=== PATIENT | male | born 1965 | race Caucasian/White ===

== ENCOUNTER 2019-06-19 05:36 | Emergency (ER) | payer OTHER ==
[2019-06-19] MEDS ORDERED: HYDROCODONE/APAP 7.5/325 MG TAB ONE (06:00)
--- NOTE | 2019-06-19 06:44 | ER ---
Nurse's Notes [facility] Name: Naren Valle Age: 53 yrs Sex: Male : 1965 Arrival Date: 06/19/2019 Time: 05:39 Bed 7 Private MD: Gypsy Moulton Diagnosis: Fracture of forearm-right radius Presentation: 06/19 05:49 Presenting complaint: Patient states: Reports he tripped over something in the bedroom ea and landed on his right forearm. Transition of care: patient was not received from another setting of care. Onset of symptoms. Risk Assessment: Do you want to hurt yourself or someone else? Patient reports no desire to harm self or others. Initial Sepsis Screen: Does the patient meet any 2 criteria? No. Patient's initial sepsis screen is negative. Does the patient have a suspected source of infection? No. Patient's initial sepsis screen is negative. Care prior to arrival: None. 05:49 Method Of Arrival: Ambulatory ea 05:49 Acuity: OLGA 4 ea Triage Assessment: 05:57 General: Appears uncomfortable, Behavior is appropriate for age. Pain: Complains of ea pain in right arm. Neuro: Level of Consciousness is awake, alert, obeys commands, Oriented to person, place, time, situation. Cardiovascular: Patient's skin is warm and dry. Respiratory: Airway is patent Respiratory effort is even, unlabored, Respiratory pattern is regular, symmetrical. Derm: Skin is pink, warm \T\ dry. Musculoskeletal: Range of motion: limited in right wrist. 06:00 Injury Description: right forearm injury. cc3 Historical: - Allergies: 05:56 No Known Allergies; ea - Home Meds: 05:56 amlodipine oral [Active]; Metoprolol Tartrate Oral [Active]; ea - PMHx: 05:56 Hypertension; ea - PSHx: 05:56 Hernia repair; ea - Immunization history:: Adult Immunizations up to date. - Social history:: Smoking status: Patient/guardian denies using tobacco. - Ebola Screening: : No symptoms or risks identified at this time. Screenin:54 Abuse screen: Denies threats or abuse. Nutritional screening: No deficits noted. ea Tuberculosis screening: No symptoms or risk factors identified. Fall Risk None identified. Assessment: 05:57 General: see triage assessment. cc3 06:50 Reassessment: Patient appears in no apparent distress at this time. Patient and/or cc3 family updated on plan of care and expected duration. Pain level reassessed. Patient is alert, oriented x 3, equal unlabored respirations, skin warm/dry/pink. TRACK TEMPLATE MAKER Roberto discharged the patient home with prescription given. No IV cannula in situ. Patient left ER vitally stable and ambulatory with his . No valuables left in the patient's room. Patient states feeling better. Patient states symptoms have improved. Vital Signs: 05:56 BP 148 / 87; Pulse 72; Resp 18; Temp 97.6; Pulse Ox 99% on R/A; Weight 70.31 kg; Height ea 5 ft. 6 in. (167.64 cm); Pain 10/10; 06:30 BP 145 / 83; Pulse 70; Resp 17 S; Pulse Ox 99% on R/A; Pain 4/10; cc3 05:56 Body Mass Index 25.02 (70.31 kg, 167.64 cm) ea ED Course: 05:39 Patient arrived in ED. es 05:40 Gypsy Moulton MD is Private Physician. es 05:52 [facility]C [facility] kb 05:52 Yuniel Pacheco MD is Attending Physician. kb 05:54 Triage completed. ea 05:54 Arm band placed on right wrist. Patient placed in an exam room, on a stretcher, on ea pulse oximetry. 05:55 Patient has correct armband on for positive identification. Bed in low position. Call ea light in reach. Side rails up X2. 06:12 Anamaria Cuellar is Primary Nurse. cc3 06:18 Wrist Right 2 View In Process Unspecified. EDMS 06:40 Orthoglass splint: Sugar tong splint applied on right arm. Sling applied to right arm. mt 06:50 No provider procedures requiring assistance completed. Patient did not have IV access cc3 during this emergency room visit. Administered Medications: 06:05 Drug: [place] (7.5 mg-325 mg) 1 tabs {Note: RASS 0.} Route: PO; cc3 06:50 Follow up: Response: No adverse reaction; Pain is decreased; RASS: Alert and Calm (0) cc3 Outcome: 06:43 Discharge ordered by . kb 06:50 Discharged to home ambulatory, with family. cc3 06:50 Condition: stable 06:50 Discharge instructions given to patient, Instructed on discharge instructions, follow up and referral plans. medication usage, Demonstrated understanding of instructions, follow-up care, medications, Prescriptions given X 1. 06:52 Patient left the ED. cc3 Signatures: Dispatcher [employer] EDGricelda Travis, WIRE COINER-C WIRE COINER-CkVidhi Andrea Moriah mt Antunez, Elena, RN RN Anamaria Jeronimo cc3
--- NOTE | 2019-06-19 06:45 | EDPHYS ---
Physician Documentation [facility] Name: Naren Valle Age: 53 yrs Sex: Male : 1965 Arrival Date: 06/19/2019 Time: 05:39 Bed 7 Private MD: Gypsy Moulton ED Physician Yuniel Pacheco HPI: 06/19 06:21 This 53 yrs old Male presents to ER via Ambulatory with complaints of Arm kb Injury, Possible brake. 06:21 The patient or guardian complains of decreased range of motion, deformity, injury, kb pain, swelling, tenderness. The complaints affect the right wrist. Context: The problem was sustained at home, resulted from a fall, on an outstretched hand, tripped over something in the dark. Onset: The symptoms/episode began/occurred just prior to arrival. Treatment prior to arrival includes: no previous treatment. Modifying factors: The symptoms are alleviated by nothing. the symptoms are aggravated by movement. Associated signs and symptoms: Pertinent positives: decreased range of motion, pain, swelling. Severity of symptoms: At their worst the symptoms were moderate, in the emergency department the symptoms are unchanged. The patient has not experienced similar symptoms in the past. The patient has not recently seen a physician. Historical: - Allergies: 05:56 No Known Allergies; ea - Home Meds: 05:56 amlodipine oral [Active]; Metoprolol Tartrate Oral [Active]; ea - PMHx: 05:56 Hypertension; ea - PSHx: 05:56 Hernia repair; ea - Immunization history:: Adult Immunizations up to date. - Social history:: Smoking status: Patient/guardian denies using tobacco. - Ebola Screening: : No symptoms or risks identified at this time. ROS: 06:20 Constitutional: Negative for fever, chills, and weight loss, ENT: Negative for injury, kb pain, and discharge, Neck: Negative for injury, pain, and swelling, Cardiovascular: Negative for chest pain, palpitations, and edema, Respiratory: Negative for shortness of breath, cough, wheezing, and pleuritic chest pain, Abdomen/GI: Negative for abdominal pain, nausea, vomiting, diarrhea, and constipation, Skin: Negative for injury, rash, and discoloration, Neuro: Negative for headache, weakness, numbness, tingling, and seizure. 06:20 MS/extremity: Positive for injury or acute deformity, decreased range of motion, pain, swelling, tenderness, of the right wrist. Exam: 06:18 Constitutional: This is a well developed, well nourished patient who is awake, alert, kb and in no acute distress. Head/Face: Normocephalic, atraumatic. Neck: Trachea midline, no thyromegaly or masses palpated, and no cervical lymphadenopathy. Supple, full range of motion without nuchal rigidity, or vertebral point tenderness. No Meningismus. Chest/axilla: Normal chest wall appearance and motion. Nontender with no deformity. No lesions are appreciated. Cardiovascular: Regular rate and rhythm with a normal S1 and S2. No gallops, murmurs, or rubs. Normal PMI, no JVD. No pulse deficits. Respiratory: Lungs have equal breath sounds bilaterally, clear to auscultation and percussion. No rales, rhonchi or wheezes noted. No increased work of breathing, no retractions or nasal flaring. Abdomen/GI: Soft, non-tender, with normal bowel sounds. No distension or tympany. No guarding or rebound. No evidence of tenderness throughout. Skin: Warm, dry with normal turgor. Normal color with no rashes, no lesions, and no evidence of cellulitis. Neuro: Awake and alert, GCS 15, oriented to person, place, time, and situation. Cranial nerves II-XII grossly intact. Motor strength 5/5 in all extremities. Sensory grossly intact. Cerebellar exam normal. Normal gait. 06:18 Musculoskeletal/extremity: Extremities: grossly normal except: noted in the right wrist: decreased ROM, pain, swelling, tenderness, ROM: limited active range of motion due to pain, in the right wrist, Circulation is intact in all extremities. Sensation intact. Vital Signs: 05:56 BP 148 / 87; Pulse 72; Resp 18; Temp 97.6; Pulse Ox 99% on R/A; Weight 70.31 kg; Height ea 5 ft. 6 in. (167.64 cm); Pain 10/10; 06:30 BP 145 / 83; Pulse 70; Resp 17 S; Pulse Ox 99% on R/A; Pain 4/10; cc3 05:56 Body Mass Index 25.02 (70.31 kg, 167.64 cm) ea Procedures: 06:41 Splinting: Splint applied to right wrist using Orthoglass splint, applied by tech. kb Examined by me, post splint application: neurovascular intact, 2+ distal pulses palpable, brisk capillary refill noted, Patient tolerated well. MDM: 05:52 Patient medically screened. kb 06:18 Data reviewed: vital signs, nurses notes. Data interpreted: Pulse oximetry: on room air kb is 99 %. Interpretation: normal. 06:42 Counseling: I had a detailed discussion with the patient and/or guardian regarding: the kb historical points, exam findings, and any diagnostic results supporting the discharge/admit diagnosis, radiology results, the need for outpatient follow up, a orthopedic surgeon, to return to the emergency department if symptoms worsen or persist or if there are any questions or concerns that arise at home. ED course: Pt educated on ice and elevation for swelling. Reports he is flying to [place] tomorrow. Recommended that he stay and be seen by ortho first. Educated on compartment syndrome and reasons to return.. 06/19 06:18 Order name: Wrist Right 2 View [facility] 06/19 06:21 Order name: Sugar Tong Forearm Splint; Complete Time: 06:36 kb 06/19 06:21 Order name: Sling; Complete Time: 06:41 kb Administered Medications: 06:05 Drug: [place] (7.5 mg-325 mg) 1 tabs {Note: RASS 0.} Route: PO; cc3 06:50 Follow up: Response: No adverse reaction; Pain is decreased; RASS: Alert and Calm (0) cc3 Disposition: 22:50 Co-signature as Attending Physician, Yuniel Pacheco MD. Disposition: 06/19/19 06:43 Discharged to Home. Impression: Fracture of forearm - right radius. - Condition is Stable. - Discharge Instructions: Forearm Fracture, [id number]. - Prescriptions for Tylenol- Codeine #3 300-30 mg Oral Tablet - take 2 tablets by ORAL route every 6 hours As needed; 16 tablet. - Medication Reconciliation Form, Thank You Letter, Antibiotic Education, Prescription Opioid Use form. - Follow up: Emergency Department; When: As needed; Reason: Worsening of condition. Follow up: Private Physician; When: 2 - 3 days; Reason: Recheck today's complaints, Continuance of care, Re-evaluation by your physician. Signatures: Dispatcher [employer] [facility] Gricelda Mejia, FRINGE WEAVER-C FRINGE WEAVER-Ckb Barb Shultz, RN RN Yuniel Victoria MD MD gs Cordel, Charlene cc3 Corrections: (The following items were deleted from the chart) 06:18 05:47 Forearm Right+RAD.RAD.BRZ ordered. [facility] 06:52 06:43 06/19/2019 06:43 Discharged to Home. Impression: Fracture of forearm - right cc3 radius. Condition is Stable. Discharge Instructions: Forearm Fracture, [id number]. Prescriptions for Tylenol-Codeine #3 300-30 mg Oral Tablet - take 2 tablets by ORAL route every 6 hours As needed; 16 tablet. and Forms are Medication Reconciliation Form, Thank You Letter, Antibiotic Education, Prescription Opioid Use. Follow up: Emergency Department; When: As needed; Reason: Worsening of condition. Follow up: Private Physician; When: 2 - 3 days; Reason: Recheck today's complaints, Continuance of care, Re-evaluation by your physician. kb
[2019-06-19 06:57] VITALS: BP 148/87; TEMP 97.6; O2SAT 99
--- NOTE | 2019-06-19 08:40 | RAD REPORT ---
EXAM DESCRIPTION: RAD - Wrist Right 2 View - 06/19/2019 6:19 am CLINICAL HISTORY: Trip and fall, right wrist pain go COMPARISON: None. FINDINGS: Transverse fracture is present across the distal right radius approximately 1 centimeter f rom the articular surface. No significant distraction or angulation deformity. There may be some mini mal impaction along the dorsal margin. Ulna styloid is fractured with 2 mm of displacement. No carpal bone abnormality seen. No foreign body or other soft tissue abnormality. IMPRESSION: Transverse fracture of the distal radius with no distraction or angulation deformity. Th ere may be minimal impaction along the dorsal margin. Ulna styloid fracture.
== END 2019-06-19 06:52 | disposition home or self-care (01) ==
LOC: ER 05:36
PROC: 2W3CX1Z Immobilization of Right Lower Arm using Splint (ICD-10-PCS; principal; 2019-06-19)
DX: S52.501A Unspecified fracture of the lower end of right radius, initial encounter for closed fracture (principal); I10 Essential (primary) hypertension; W01.0XXA Fall on same level from slipping, tripping and stumbling without subsequent striking against object, initial encounter; Y93.89 Activity, other specified; Y92.9 Unspecified place or not applicable
CPT/HCPCS: 99284

== ENCOUNTER 2021-10-03 09:36 | Emergency (ER) | payer OTHER ==
--- OUTSIDE RECORDS SUMMARY | 2021-10-03 09:43 | XMS REPORT | Continuity of Care Document ---
:1965 Author Organization [facility] t Address [address] [place] [address] Care Team Providers Name Role Phone Coco Moulton Attending Clinician Unavailable Problems This patient has no known problems. Allergies, Adverse Reactions, Alerts This patient has no known allergies or adverse reactions. Medications Ordered Filled Start Stop Current Ordering Indication Dosage Frequency Signature Comments Components Source Medication Medication Date Date Medication? Clinician (SIG) Name Name Levocetiriz Levocetiriz 2020-0 2020- No Na Moulton [address] [facility] 3-24 - in the [facility] Dihydrochlo Dihydrochlo 00:00: 00:00 evening [facility] Metoprolol Metoprolol 2018- Yes Na Moulton [address] [facility] Succinate Succinate 9-25 [facility] ER 00:00: [facility] 00 [facility] Flonase Flonase Yes Na Moulton [address] [facility] 7-19 each [facility] - 00:00: nostril [facility] 00 [facility] Amlodipine Amlodipine Yes Na Moulton one [facility] Besy-Benaze Besy-Benaze L [facility] - pril HCl pril HCl [facility] Ketoconazol Ketoconazol Yes Na Moulton not [facility] e e defined [facility] Procedures This patient has no known procedures. Encounters Start End Encounter Admission Attending Care Care Encounter Source Date/Time Date/Time Type Type Clinicians Facility Department ID 2021-10-03 Outpatient Gypsy Moulton [facility] [id number] [facility] 09:02[facility]00 [facility] 2021-10-02 Outpatient Gypsy Moulton [facility] [id number] [facility] 14:33:35 [facility] 2021-10-02 Outpatient Gypsy Moulton [facility] [id number] [facility] 14:32:18 [facility] 2021-10-02 [facility] [id number] [facility] 11[facility]31:08 [id number] [facility] 2021[facility]10-02 [facility] [id number] [facility] 11[facility]30:56 [id number] [facility] 2021-10-02 [facility] [id number] [facility] 11:08:13 [id number] [facility] 2021-10-02 [facility] [id number] [facility] 10[facility]57:22 [id number] [facility] 2021-09-17 2021-09-17 [facility] [id number] [facility] 2021-03-18 2021-03-18 Outpatient [facility] [id number] [facility] 2020-09-17 2020-09-17 Outpatient [facility] [id number] [facility] 2020-03-19 2020-03-19 [facility] [id number] [facility] 13:20:00 13:20:00 [facility] 2019-11-28 2019-11-28 [facility] [id number] [facility] 09:53:00 09:53:00 [facility] 2019-09-08 2019-09-08 [facility] [id number] [facility] 15:00:00 15:00:00 [facility] 2019-08-02 2019-08-02 [facility] [id number] [facility] 15:30:00 15:30:00 [facility] 2019-07-12 2019-07-12 [facility] [id number] 11:00:00 11:00:00 [facility] 2019-06-30 2019-06-30 [facility] [id number] [facility] 15:00:00 15:00:00 [facility] Clinics 2019-06-20 2019-06-20 [facility] [id number] [facility] 13:30:00 13:30:00 [facility] 2019-06-01 2019-06-01 [facility] [id number] [facility] 10[facility]40:00 10:40:00 t [facility] 2019-05-17 2019-05-17 [facility] [id number] [facility] 14:00:00 14:00:00 [facility] 2019-04-06 2019-04-06 [facility] [id number] [facility] 09:30:00 09:30:00 [facility] 2019-03-25 2019-03-25 [facility] [id number] [facility] 14:20:00 14:20:00 t [facility] 2018-12-01 2018-12-01 [facility] [id number] [facility] 10:00:00 10:00:00 [facility] 2018-06-03 2018-06-03 [facility] [id number] [facility] 10:00:00 10:00:00 [facility] 2018-04-01 2018-04-01 [facility] [id number] 11:15:00 11:15:00 [facility] Results This patient has no known results.
[2021-10-03] MEDS ORDERED: ONDANSETRON 4 MG/2 ML VIAL ONE (10:20)
[2021-10-03] MEDS ORDERED: NA CHLORIDE 0.9% 500 ML ONE (10:20)
[2021-10-03] MEDS ORDERED: MORPHINE 4 MG/ML SYR ONE (10:20)
[2021-10-03 10:33] LABS: Urine Blood 3+ (Negative); Urine Glucose Negative (Negative); Urine Protein 1+ (Negative); Urine Specific Gravity 1.025 (1.005-1.030); Urine pH 6.5 (5.0-7.0)
[2021-10-03 10:36] LABS: Absolute Lymphocytes (CBC) 2.1 K/uL (0.7-4.9); Hematocrit 47.1 % (39.6-49.0); MPV 8.1 fL (7.6-11.3); RBC Red Blood Cell Count 5.17 M/uL (4.33-5.43)
[2021-10-03] MEDS ORDERED: FENTANYL CITR 100 MCG/2 ML ONE ×2 (10:37→13:00)
[2021-10-03 10:50] LABS: Potassium 3.5 mmol/L (3.5-5.1)
[2021-10-03 10:51] LABS: Albumin 4.3 g/dL (3.4-5.0); Bilirubin Direct 0.1 mg/dL (0-0.2); Bilirubin Total 0.7 mg/dL (0.2-1.0); Protein, Total 7.6 g/dL (6.4-8.2)
--- NOTE | 2021-10-03 11:09 | RAD REPORT ---
EXAM DESCRIPTION: CT - Stone Protocol - 10/03/2021 10:45 am CLINICAL HISTORY: Right flank pain COMPARISON: No comparisons TECHNIQUE: Axial 3 mm thick images were obtained without oral or IV contrast. The [id number] span s the entirety of the system including uppermost abdomen and lung bases. All CT scans are performed using dose optimization technique as appropriate and may include automated exposure control or mA/KV adjustment according to patient size. FINDINGS: Mild hydronephrosis of the right side pelvis and calices noted secondary to a 6 mm obstruc ting stone at the right UPJ. More distally the ureter is normal in size down to the bladder. No other obstructing or nonobstructing calculi seen. Right kidney is mildly edematous compared to the left. P artially exophytic 10 mm low-density mass medial mid left kidney is probably an incidental cyst. A pa rtially exophytic 13 millimeter mass posterior mid left kidney is more isodense to the parenchyma. Th is may be a complex cyst or less likely a solid mass. No suspicious renal masses. Isodense masses and pyelonephritis are not excluded on a stone protocol CT scan. No significant adrenal finding. No urin silvestre bladder suspicious finding. Imaged portions of the liver, spleen and pancreas show no suspicious findings on non-contrast imaging . No gallbladder or biliary tree abnormality identified. No suspicious bowel findings. No appendicitis findings. No active GI process seen. No mass or bulky lymphadenopathy. Fat extends into the origin of each inguinal canal. No free air, fr ee fluid or inflammatory stranding. No significant bony abnormality. IMPRESSION: There is a 6 mm right UPJ stone causing mild hydronephrosis of the right pelvis and stephanie chase. Isodense masses and pyelonephritis are not excluded on stone protocol technique. Posterior mid left renal partially exophytic mass is isodense to the renal parenchyma. This may be a solid mass or more likely a complex cyst. Patient also has a small cyst in the medial mid left kidney . These are not fully assessed and may need outpatient sonographic follow-up or contrast CT follow-up for further characterization.
--- NOTE | 2021-10-03 12:11 | EDPHYS ---
Physician Documentation [facility] Name: Naren Valle Age: 56 yrs Sex: Male : 1965 Arrival Date: 10/03/2021 Time: 09:37 Bed 6 Private MD: Gypsy Moulton ED Physician Tanner Lorenzo HPI: 10/03 10:16 This 56 yrs old Male presents to ER via Ambulatory with complaints of Flank Pain. kdr 10:16 The patient complains of pain in the right mid back. Patient's discomfort begins in his kdr right kidney and radiates around down into his right testicle. He has not had pain like this before. Onset: The symptoms/episode began/occurred yesterday, Patient states the pain began yesterday around 2 PM. The pain was generally manageable until this morning right prior to arrival.. Modifying factors: The symptoms are alleviated by nothing. the symptoms are aggravated by nothing. Severity of pain: At its worst the pain was severe incapacitating just prior to arrival, in the emergency department the pain is unchanged. The patient has not experienced similar symptoms in the past. The patient has not recently seen a physician. Historical: - Allergies: 09:47 No Known Allergies; ic1 - Home Meds: 09:47 amlodipine oral [Active]; Metoprolol Tartrate Oral [Active]; ic1 - PMHx: 09:47 Hypertension; ic1 - Immunization history:: Adult Immunizations up to date. - Social history:: Smoking status: Reported history of juuling and/or vaping. ROS: 10:16 Constitutional: Negative for fever, chills, and weight loss, Eyes: Negative for injury, kdr pain, redness, and discharge, ENT: Negative for injury, pain, and discharge, Neck: Negative for injury, pain, and swelling, Cardiovascular: Negative for chest pain, palpitations, and edema, Respiratory: Negative for shortness of breath, cough, wheezing, and pleuritic chest pain, : Negative for injury, bleeding, discharge, and swelling, MS/Extremity: Negative for injury and deformity, Skin: Negative for injury, rash, and discoloration, Neuro: Negative for headache, weakness, numbness, tingling, and seizure activity. Psych: Negative for depression, anxiety, suicide ideation, homicidal ideation, and hallucinations, Allergy/Immunology: Negative for hives, rash, and allergies, Endocrine: Negative for neck swelling, polydipsia, polyuria, polyphagia, and marked weight changes, Hematologic/Lymphatic: Negative for swollen nodes, abnormal bleeding, and unusual bruising. 10:16 Abdomen/GI: Positive for abdominal pain, nausea, Negative for vomiting, diarrhea, constipation, abdominal distension, anorexia, dysphagia, hematemesis, black/tarry stool, rectal pain, rectal bleeding. Exam: 10:16 Constitutional: This is a well developed, well nourished patient who is awake, alert, kdr and in moderate distress. Head/Face: Normocephalic, atraumatic. Eyes: Pupils equal round and reactive to light, extra-ocular motions intact. Lids and lashes normal. Conjunctiva and sclera are non-icteric and not injected. Cornea within normal limits. Periorbital areas with no swelling, redness, or edema. Neck: Trachea midline, no thyromegaly or masses palpated, and no cervical lymphadenopathy. Supple, full range of motion without nuchal rigidity, or vertebral point tenderness. No Meningismus. Chest/axilla: Normal chest wall appearance and motion. Nontender with no deformity. No lesions are appreciated. Cardiovascular: Regular rate and rhythm with a normal S1 and S2. No gallops, murmurs, or rubs. Normal PMI, no JVD. No pulse deficits. Respiratory: Lungs have equal breath sounds bilaterally, clear to auscultation and percussion. No rales, rhonchi or wheezes noted. No increased work of breathing, no retractions or nasal flaring. Back: No spinal tenderness. No costovertebral tenderness. Full range of motion. Skin: Warm, dry with normal turgor. Normal color with no rashes, no lesions, and no evidence of cellulitis. MS/ Extremity: Pulses equal, no cyanosis. Neurovascular intact. Full, normal range of motion. Neuro: Awake and alert, GCS 15, oriented to person, place, time, and situation. Cranial nerves II-XII grossly intact. Motor strength 5/5 in all extremities. Sensory grossly intact. Cerebellar exam normal. Normal gait. Psych: Awake, alert, with orientation to person, place and time. Behavior, mood, and affect are within normal limits. 10:16 Abdomen/GI: Inspection: distension, obese Bowel sounds: diminished, in all quadrants, Palpation: soft, mild abdominal tenderness, in all quadrants. Vital Signs: 09:46 Pulse 83; Resp 20; Temp 98.0(O); Pulse Ox 98% on R/A; ic1 10:30 BP 163 / 98; Pulse 84; Resp 24 S; Pulse Ox 98% on R/A; Weight 76.2 kg (R); Height 5 ft. jg9 4 in. (162.56 cm) (R); 11:30 BP 158 / 86; Pulse 76; Resp 20 S; Pulse Ox 99% on R/A; jg9 12:00 BP 141 / 79; Pulse 89; Resp 18 S; Pulse Ox 98% on R/A; jg9 13:00 BP 150 / 87; Pulse 73; Resp 20 S; Pulse Ox 99% on R/A; jg9 15:00 BP 132 / 82; Pulse 76; Resp 17 S; Pulse Ox 98% ; jg9 16:00 BP 126 / 74; Pulse 65; Resp 17 S; Pulse Ox 97% on R/A; jg9 18:00 BP 134 / 80; Pulse 59; Resp 14 S; Pulse Ox 97% on R/A; jg9 20:06 BP 155 / 88; Pulse 60; Resp 18; Pulse Ox 100% on R/A; sm5 10:30 Body Mass Index 28.84 (76.20 kg, 162.56 cm) jg9 MDM: 12:07 Data reviewed: vital signs, nurses notes, lab test result(s), radiologic studies. kdr Counseling: I had a detailed discussion with the patient and/or guardian regarding: the historical points, exam findings, and any diagnostic results supporting the discharge/admit diagnosis, lab results, radiology results, the need for outpatient follow up. Physician consultation: Hamzah Rodriguez MD was called at 12:07, was contacted at 12:07, regarding consult, patient's condition, and will see patient in office, Patient will be seen in clinic for in 2 to 3 weeks. ED course: Patient is much improved from initial presentation. Still has some mild discomfort to 2-3. The area of distribution of pain is still the same as before, right CVA to right groin. I discussed with Dr. Rodriguez who suggested discharging the patient given pain control with a urine strainer and follow-up in 2 to 3 weeks. Patient was advised to return to the ED should discharge medications not manages pain and nausea. Patient was otherwise stable in the ED and was discharged in good condition and the patient and spouse were happy with the care provided and plan for discharge and follow-up. 12:11 Patient medically screened. kdr 15:24 ED course: Awaiting for urology physician to be available at [facility].. 10/03 10:14 Order name: Basic Metabolic Panel; Complete Time: 11:55 [facility] 10/03 10:14 Order name: CBC with Diff; Complete Time: :55 [facility] 10/03 10:14 Order name: Hepatic Function; Complete Time: : [facility] 10/03 10:33 Order name: Urine Dipstick-Ancillary; Complete Time: : [facility] 10/03 10:33 Order name: CT Stone Protocol; Complete Time: :55 [facility] 10/03 13:01 Order name: SARS-COV-2 RT PCR (Document "Date of Onset" if Symptomatic); Complete Time: eb 15:10/03 17:13 Interpretation: SARSCOV2 RT PCR NEGATIVE. [facility] 10/03 10:14 Order name: IV Saline Lock; Complete Time: 10:19 [facility] 10/03 10:14 Order name: Labs collected and sent; Complete Time: 10: [facility] 10/03 10:21 Order name: Urine Dipstick-Ancillary (obtain specimen); Complete Time: 10:31 [facility] Administered Medications: 10:20 Drug: Zofran (Ondansetron) 4 mg Route: IVP; Site: left antecubital; jg9 10:38 Follow up: Response: No adverse reaction; Nausea unchanged jg9 10:20 Drug: NS 0.9% 500 ml Route: IV; Rate: bolus; Site: left antecubital; jg9 11:20 Follow up: IV Status: Completed infusion jg9 10:24 Drug: morphine 4 mg Route: IVP; Site: left antecubital; jg9 10:37 Follow up: Response: Pain is unchanged, physician notified jg9 10:38 Follow up: Response: RASS: Alert and Calm (0) jg9 10:36 Drug: fentaNYL (PF) 25 mcg {Note: RASS-0.} Route: IVP; Site: left antecubital; jg9 10:59 Follow up: Response: No adverse reaction; Pain is decreased; RASS: Alert and Calm (0) jg9 12:25 Drug: Tylenol #3 (300 mg-30 mg) 2 tabs Route: PO; jg9 13:00 Follow up: Response: No adverse reaction; Pain is unchanged, physician notified jg9 13:03 Drug: fentaNYL (PF) 25 mcg {Note: RASS-0.} Route: IVP; Site: left antecubital; jg9 15:08 Follow up: Response: No adverse reaction; Pain is decreased jg9 Disposition Summary: 10/03/21 17:07 Transfer Ordered Transfer Location: [facility] kdr Reason: Higher level of care kdr Condition: Fair(10/03/21 17:07) kdr Problem: new(10/03/21 17:07) kdr Symptoms: have improved(10/03/21 17:07) kdr Accepting Physician: iveth(10/03/21 20:07) cem Diagnosis - Unspecified renal colic, kidney stone/calculus in urethra6 mm right UPJ, renal kdr insufficiency: Creatinine 1.37 Forms: - Medication Reconciliation Form kdr - SBAR form kdr Signatures: Dispatcher [employer] EDMS Tanner Lorenzo MD MD kdr Amanda Pizarro RN RN sm5 Zaynab Coker RN RN jg9 Lyla Jones RN RN ic1 Corrections: (The following items were deleted from the chart) 17:06 12:11 Home kdr kdr 17:06 12:11 new kdr kdr 17:06 12:11 have improved kdr kdr 17:06 12:11 Stable kdr kdr 17:06 12:11 Unspecified renal colic kdr kdr 17:06 12:11 Kidney Stone/ Calculus in urethra - 6 mm right UPJ with mild hydronephrosis kdr kdr 17:06 12:11 Renal insufficiency: Creatinine 1.37 kdr kdr 20:07 17:07 x kdr 5
--- NOTE | 2021-10-03 12:11 | ER ---
Nurse's Notes [facility] Name: Naren Valle Age: 56 yrs Sex: Male : 1965 Arrival Date: 10/03/2021 Time: 09:37 Bed 6 Private MD: Gypsy Moulton Diagnosis: Unspecified renal colic, kidney stone/calculus in urethra6 mm right UPJ, renal insufficiency: Creatinine 1.37 Presentation: 10/03 09:47 Chief complaint: Patient states: Pt c/o R side flank pain that radiates around to the R ic1 groin area. Pt also c/o nausea, denies emesis. Coronavirus screen: Vaccine status: Patient reports receiving the 2nd dose of the covid vaccine. Ebola Screen: No symptoms or risks identified at this time. Initial Sepsis Screen: Does the patient meet any 2 criteria? No. Patient's initial sepsis screen is negative. Does the patient have a suspected source of infection? No. Patient's initial sepsis screen is negative. Risk Assessment: Do you want to hurt yourself or someone else? Patient reports no desire to harm self or others. Onset of symptoms is unknown. 09:47 Method Of Arrival: Ambulatory ic1 09:47 Acuity: OLGA 3 ic1 Triage Assessment: 09:48 General: Appears uncomfortable, Behavior is cooperative, anxious. Pain: Denies pain. ic1 Complains of pain in right mid back and right low back. Historical: - Allergies: 09:47 No Known Allergies; ic1 - Home Meds: 09:47 amlodipine oral [Active]; Metoprolol Tartrate Oral [Active]; ic1 - PMHx: 09:47 Hypertension; ic1 - Immunization history:: Adult Immunizations up to date. - Social history:: Smoking status: Reported history of juuling and/or vaping. Screenin:01 Abuse screen: Denies threats or abuse. Denies injuries from another. Nutritional jg9 screening: No deficits noted. Tuberculosis screening: No symptoms or risk factors identified. Fall Risk None identified. Assessment: 10:01 General: Appears uncomfortable, Behavior is anxious. Pain: Complains of pain in back-r jg9 flank radiating to r groin pain 06/16. GI: Reports nausea. 10:35 Reassessment: No changes from previously documented assessment. patient reports no jg9 change in pain after 4mg morphine-attending notified. 10:40 Reassessment: PT TO CT. bp 10:40 Reassessment: Patient states symptoms have improved. Pain level improved from 10/10 to jg9 2/10 after 25mcg of fentanyl. 11:45 Reassessment: Patient repots pain is back to 10/10. jg9 11:54 Reassessment: Patient and/or family updated on plan of care and expected duration. Pain bp level reassessed. Patient states feeling better. Patient states symptoms have improved. 13:14 Reassessment: D/C ON HOLD FOR PAIN MANAGEMENT. bp 17:49 Reassessment: Called [facility] who states that they are still waiting ss for a bed to become available at this time. 20:04 General: Appears in no apparent distress. Behavior is cooperative. Neuro: Level of sm5 Consciousness is awake, alert, Oriented to person, place, time, situation. GI: Reports nausea. : Reports pain in right flank(s). Vital Signs: 09:46 Pulse 83; Resp 20; Temp 98.0(O); Pulse Ox 98% on R/A; ic1 10:30 BP 163 / 98; Pulse 84; Resp 24 S; Pulse Ox 98% on R/A; Weight 76.2 kg (R); Height 5 ft. jg9 4 in. (162.56 cm) (R); 11:30 BP 158 / 86; Pulse 76; Resp 20 S; Pulse Ox 99% on R/A; jg9 12:00 BP 141 / 79; Pulse 89; Resp 18 S; Pulse Ox 98% on R/A; jg9 13:00 BP 150 / 87; Pulse 73; Resp 20 S; Pulse Ox 99% on R/A; jg9 15:00 BP 132 / 82; Pulse 76; Resp 17 S; Pulse Ox 98% ; jg9 16:00 BP 126 / 74; Pulse 65; Resp 17 S; Pulse Ox 97% on R/A; jg9 18:00 BP 134 / 80; Pulse 59; Resp 14 S; Pulse Ox 97% on R/A; jg9 20:06 BP 155 / 88; Pulse 60; Resp 18; Pulse Ox 100% on R/A; sm5 10:30 Body Mass Index 28.84 (76.20 kg, 162.56 cm) jg9 ED Course: 09:37 Patient arrived in ED. am2 09:37 Gypsy Moulton MD is Private Physician. am2 09:44 Tanner Lorenzo MD is Attending Physician. kdr 09:47 Triage completed. ic1 09:48 Arm band placed on left wrist. ic1 09:51 Zaynab Coker, MILA is Primary Nurse. jg9 10:00 Inserted saline lock: 22 gauge in left antecubital area, using aseptic technique. Blood jg9 collected. 10:40 Patient has correct armband on for positive identification. Placed in gown. Bed in low bp position. Call light in reach. Side rails up X2. Adult w/ patient. 10:44 CT Stone Protocol In Process Unspecified. EDMS 11:01 Resting quietly. Awaiting radiology results. Pt visited by . jg9 11:45 uncomfortable. Awaiting radiology results. Pt visited by . jg9 12:09 Gypsy Moulton MD is Referral Physician. kdr 12:10 Hamzah Rodriguez MD is Referral Physician. kdr 13:03 transfer initiated with Kayli Tovar Rn from the [facility]. eb 16:25 No apparent distress. Resting quietly. transfer Awaiting bed assignment. Pt visited by jg9 . 18:21 Appears to be sleeping. Pt visited by . jg9 19:04 administrative approval given by Kayli Friend/ patient has been accepted [address] [place] [address] 1511/ Dr. Maloney accepted the patient in transfer/ report to be called to [phone]. 20:06 No provider procedures requiring assistance completed. Patient transferred, IV remains sm5 in place. Administered Medications: 10:20 Drug: Zofran (Ondansetron) 4 mg Route: IVP; Site: left antecubital; jg9 10:38 Follow up: Response: No adverse reaction; Nausea unchanged jg9 10:20 Drug: NS 0.9% 500 ml Route: IV; Rate: bolus; Site: left antecubital; jg9 11:20 Follow up: IV Status: Completed infusion jg9 10:24 Drug: morphine 4 mg Route: IVP; Site: left antecubital; jg9 10:37 Follow up: Response: Pain is unchanged, physician notified jg9 10:38 Follow up: Response: RASS: Alert and Calm (0) jg9 10:36 Drug: fentaNYL (PF) 25 mcg {Note: RASS-0.} Route: IVP; Site: left antecubital; jg9 10:59 Follow up: Response: No adverse reaction; Pain is decreased; RASS: Alert and Calm (0) jg9 12:25 Drug: Tylenol #3 (300 mg-30 mg) 2 tabs Route: PO; jg9 13:00 Follow up: Response: No adverse reaction; Pain is unchanged, physician notified jg9 13:03 Drug: fentaNYL (PF) 25 mcg {Note: RASS-0.} Route: IVP; Site: left antecubital; jg9 15:08 Follow up: Response: No adverse reaction; Pain is decreased jg9 Outcome: 12:11 Discharge ordered by . kdr 17:07 ER care complete, transfer ordered by . kdr 20:06 Transferred to [facility], Transfer form completed. X-rays sent w/ [email or web address] patient. 20:06 Condition: stable 20:06 Instructed on the need for transfer. 20:07 Patient left the ED. sm5 Signatures: Dispatcher [employer] EDMS Tanner Lorenzo MD MD [facility] Taylor Lyn RN RN Sara Art Brian RN RN Alyssa Cason 2 Nessa Munroe Sarah RN RN 5 Zaynab Coker RN RN jg9 Lyla Jones RN RN ic1
[2021-10-03] MEDS ORDERED: CODEINE 30MG/APAP 300MG TAB ONE (12:25)
[2021-10-03 20:13] VITALS: TEMP 98
[2021-10-03 20:25] VITALS: BP 155/88; O2SAT 100
== END 2021-10-03 20:07 | disposition short-term general hospital (02) ==
LOC: ER 09:36
DX: N21.1 Calculus in urethra (principal); N23 Unspecified renal colic; N28.9 Disorder of kidney and ureter, unspecified; I10 Essential (primary) hypertension; Z20.822 Contact with and (suspected) exposure to COVID-19
CPT/HCPCS: 96361; 85025; 80048; 36415; 80076; 81003; 76377; 74176; 96375; 96374; 99285; U0003; J3010 ×2; J7040; J2405